=== PATIENT | male | born 1985 | race Caucasian/White ===

== ENCOUNTER 2019-01-04 06:55 | Emergency (ER) | payer BC ==
[~2019-01-04] VITALS: Ht 182.9 cm; Wt 90.0 kg
[~2019-01-04 06:55] MED LIST: PRED20TA PO
[2019-01-04 06:56] VITALS: BP 150/74; PULSE 100; RESP 18; Ht 182.9 cm; Wt 90.0 kg
[2019-01-04] MEDS ORDERED: LIDOCAINE 2% (MDV) 20 ML INJ INJ STA (07:14)
[2019-01-04] MEDS ORDERED: DIPHTH/TET/ACEL PERTUSS (ADULT) 0.5 ML VIAL IM* ONE (07:30)
== END 2019-01-04 08:21 | disposition home or self-care (01) ==
LOC: FTE 06:55
DX: S41.012A Laceration without foreign body of left shoulder, initial encounter (principal); Y04.0XXA Assault by unarmed brawl or fight, initial encounter; Z23 Encounter for immunization
CPT/HCPCS: 90471; 90715